=== PATIENT | male | born 1990 | race Two or more races ===

== ENCOUNTER 2020-01-31 03:58 | Emergency (ER) | payer OTHER ==
[2020-01-31] MEDS ORDERED: METHYLPREDNISOLONE INJ 125 MG/2 ML SDV IV ONE (04:18)
[2020-01-31] MEDS ORDERED: DIPHENHYDRAMINE HCL 50 MG/ML VIAL IV ONE (04:19)
[2020-01-31] MEDS ORDERED: FAMOTIDINE INJ/PF 20 MG/2 ML SDV IV ONE (04:20)
[2020-01-31] MEDS ORDERED: MORPHINE SULFATE 10 MG/ML INJ IV ONE (04:20)
--- NOTE | 2020-01-31 04:26 | ER Document Report ---
ED General - General Chief Complaint: Allergy Symptoms Stated Complaint: POSSIBLE ALLERGIC REACTION Time Seen by Provider: 01/31/20 04:11 Primary Care Provider: MARICHUY SILVA MD [HONORARY] - Follow up as needed - HPI Onset: Just prior to arrival Quality of pain: Sharp Severity: Severe Context: 30-year-old male presents to the emergency department for evaluation of sudden onset of swelling, erythema and redness in his feet bilaterally. Patient states he has no history of allergies or allergic reactions and was coming home from having dinner with friends when he noticed the sudden onset of severe pain and swelling in both of his feet. Patient states the pain in the right foot is worse than the left. Patient describes the pain is sharp and rates it as a 5 on a scale of 0-5. Patient denies exposure to new soaps, colognes, detergents, clothing, chemicals or other allergens. Patient denies change in diet or new me dications. Patient denies shortness of breath, sensation of throat swelling, fever, chills, chest pain, nausea, vomiting, abdominal pain. Patient describes his feet as being painful but not particularly pruritic. Patient denies history of COVID-19 infection, loss of sense of taste or loss of sense of smell, known exposure to Covid positive persons or known exposure to persons under investigation for COVID-19. Patient states that bearing weight on his feet exacerbates the pain and that nothing alleviates the pain. Associated symptoms: Other - See HPI Exacerbated by: Standing Relieved by: Denies Similar symptoms previously: No - Related Data Allergies/Adverse Reactions: No Known Allergies Allergy (Unverified 01/31/20 04:36) Past Medical History - General Information source: Patient - Social History Smoking Status: Current Some Day Smoker Family History: Reviewed & Not Pertinent Review of Systems - Review of Systems Notes: Review of systems as below unless otherwise stated in HPI. CONSTITUTIONAL [No] fever, [No] chills. EYES [No] eye pain. ENT [No] URI symptoms, [No] sore throat, [No] ear pain. CARDIOVASCULAR [No] chest pain, [No] palpitations, [No] edema. RESPIRATORY [No] Cough, [No] SOB, [No] wheezing. GASTROINTESTINAL [No] abdominal pain, [No] nausea, [No] Diarrhea, [No] Vomiting, [No] constipation, [No] melena, [No] rectal bleeding. GENITOURINARY [No] dysuria, [No] urinary frequency, [No] hematuria, [No] urinary urgency MUSCULOSKELETAL [No] Back pain. SKIN Positive for erythema, edema bilateral feet. NEUROLOGIC [No] Headache, [No] recent seizures, [No] paralysis,[No] parathesias. ENDOCRINE [No] polyuria. HEMO/LYMPATIC [No] easy brusing PSYCHIATRIC [No] depression. Physical Exam - Vital signs Vitals: Resp Pulse Ox 21 H 98 01/31/20 04:12 01/31/20 04:12 - Notes Notes: CONSTITUTIONAL [Vital signs reviewed, Patient appears anxious, Alert and oriented X 3, Normal stature.] HEAD [Atraumatic, Normocephalic.] EYES [Eyes are normal to inspection, No discharge from eyes, Extraocular muscles intact, Sclera are normal, Conjunctiva are injected bilaterally.] ENT [External ears normal to inspection, Nose examination normal, Mouth normal to inspection.] NECK [Normal ROM, No jugular venous distention, No meningeal signs, ] RESPIRATORY CHEST [Chest is nontender, Breath sounds normal, No respiratory distress.] CARDIOVASCULAR [RRR, No murmurs, Normal S1 S2, No rub, No gallop.] ABDOMEN [Abdomen is nontender, No pulsatile masses, No other masses, Bowel sounds normal, No distension, No peritoneal signs, No hernias.] BACK [There is no CVA Tenderness, There is no tenderness to palpation, Normal inspection.] UPPER EXTREMITY [Inspection normal, No cyanosis, No clubbing, No edema, LOWER EXTREMITY Lower extremity exam is significant for marked edema in the patient's feet bilaterally. Macular, blanching erythema is also present feet are both tender to light touch on the dorsal surface of each foot. Cap refill is less than 2 seconds. NEURO [No focal motor deficits, No focal sensory deficits, Speech normal.] SKIN Skin exam is significant for findings noted above under lower extremity exam] PSYCHIATRIC [Anxious affect. ] Course - Re-evaluation Re-evalutation: 01/31/20 05:42 Patient's pain and swelling appear to be improved. All questions were answered prior to discharge. Emergency signs and symptoms, reasons to return to the emergency department discussed with patient. - Vital Signs Vital signs: Temp Pulse Resp BP Pulse Ox 98.5 F 120 H 14 135/83 H 97 01/31/20 04:16 01/31/20 04:16 01/31/20 06:00 01/31/20 05:56 01/31/20 06:00 Discharge - Discharge Clinical Impression: Acute allergic reaction Qualifiers: Encounter type: initial encounter Qualified Code(s): T78.40XA - Allergy, unspecified, initial encounter Condition: Stable Disposition: HOME, SELF-CARE Instructions: Acute Allergic Reaction ([facility]), Use of Diphenhydramine Additional Instructions: Return to the Emergency Department without delay if any worse. HOME CARE INSTRUCTIONS & INFORMATION: Thank you for choosing us for your medical needs. We hope you're satisfied with the care you received. After you leave, you must properly care for your problem and, at the same time, observe its progress. Any condition can change. Some illnesses can change rapidly over hours or days. If your condition worsens, return to the Emergency Department or see your physician promptly. ABOUT YOUR X-RAYS AND EKG'S: If you had an EKG or X-rays taken, they have been read by the Emergency Physician. The X-rays and EKG's will also be read by a Radiologist or Public Health Doctor within 24 hours. If discrepancies are noted, you will be notified by telephone. Please be certain the ED has a correct telephone number & address where you can be reached. Also, realize that some fractures or abnormalities do not show up on initial X-rays. If your symptoms continue, see your physician. ABOUT YOUR LABORATORY TEST: If you had laboratory tests, the results have been reviewed by the Emergency Physician. Some test results (for example cultures) may not be available for several days. You will be contacted if any test result shows you need additional treatment. Please be certain the ED has a correct telephone number and address where you can be reached. ABOUT YOUR MEDICATIONS: You will receive instructions on how to take your medicine on the prescription label you receive. Additional information may be provided by the Pharmacy. If you have questions afterwards, call the ED for clarification or further instructions. Some prescribed medications may cause drowsiness. Do not perform tasks such as driving a car or operating machinery without consulting your Pharmacist. If you feel you need a refill of pain medication, your condition will need re-evaluation. Please do not call for a refill of any medication. ABOUT YOUR SIGNATURE: Signature of this document acknowledges to followin. Understanding that you received emergency treatment and that you may be released before al medical problems are known or treated. Please be certain the ED has a correct phone number & address where you can be reached. 2. Acknowledgement that you will arrange for follow-up care as recommended. 3. Authorization for the Emergency Physician to provide information to your follow-up Physician in order to maximize your care. AT ANY TIME, IF YOUR SYMPTOMS CHANGE SIGNIFICANTLY OR WORSEN OR YOU DEVELOP NEW SYMPTOMS, RETURN TO THE EMERGENCY DEPARTMENT IMMEDIATELY FOR RE-EVALUATION. OUR GOAL IS TO PROVIDE EXCELLENT MEDICAL CARE! WE HOPE THAT WE HAVE MET YOUR EXPECTATIONS DURING YOUR EMERGENCY DEPARTMENT VISIT AND THAT YOU FEEL YOU HAVE RECEIVED EXCELLENT CARE! Prescriptions: Prednisone [Deltasone 20 mg Tablet] 3 tab PO DAILY 2 Days #6 tablet Referrals: MARICHUY SILVA MD [HONORARY] - Follow up as needed
[2020-01-31 06:11] VITALS: BP 135/83
== END 2020-01-31 06:28 | disposition home or self-care (01) ==
LOC: EDBD 03:58 → ER 03:58
DX: T78.40XA Allergy, unspecified, initial encounter (principal); R22.43 Localized swelling, mass and lump, lower limb, bilateral; F17.200 Nicotine dependence, unspecified, uncomplicated
CPT/HCPCS: 99284; 96374; 96375; J1200; J2930; J2270; S0028